=== PATIENT | female | born 1970 | race Caucasian/White ===

== ENCOUNTER 2022-06-27 10:05 | Emergency (ER) | payer SELFPAY ==
[~2022-06-27] VITALS: Ht 157.5 cm; Wt 53.0 kg
[~2022-06-27 10:05] MED LIST: DICL50TA9 PO
[2022-06-27] MEDS ORDERED: KETOROLAC 30MG/ML VIAL IV NR (11:01)
[2022-06-27 11:08] LABS: BASOPHILS % 1.1 % (0.0-2.0); EOSINOPHILS % 2.3 % (0.0-5.0); HEMATOCRIT. 38.6 % (36.0-48.0); HEMOGLOBIN. 13.2 g/dL (12.0-16.0); LYMPHOCYTES % 40.6 % (20.0-50.0); MEAN CORPUSCULAR VOLUME 87.4 fL (81.0-99.0); MEAN PLATELET VOLUME 8.3 fl (7.4-10.4); MONOCYTES % 5.9 % (2.0-8.0); NEUTROPHILS % 50.1 % (40.0-76.0); PLATELET 194 x1000/uL (130-400); RED BLOOD CELL COUNT 4.42 mill/uL (4.2-5.4); RED CELL DISTRIBUTION WIDTH 13.8 % (11.6-14.6)
[2022-06-27 11:17] LABS: CHLORIDE 109 mEq/L (98-107)
[2022-06-27] MEDS ORDERED: NAPR-681 PO (12:07)
[2022-06-27 12:21] VITALS: BP 121/64
== END 2022-06-27 12:28 | disposition home or self-care (01) ==
LOC: ER 10:05
DX: M79.18 Myalgia, other site (principal); R07.89 Other chest pain; R11.0 Nausea; R06.02 Shortness of breath; Z98.890 Other specified postprocedural states
CPT/HCPCS: 36415; 71045; 80053; 83880; 84484; 85025; 93005; 96374; 99285; J1885